=== PATIENT | male | born 1975 | race Caucasian/White ===

== ENCOUNTER 2021-07-30 15:54 | Emergency (ER) | payer BC ==
[2021-07-30 17:44] LABS: #Monocytes 0.6 10x3/uL (0.0-1.1); #Neutrophils 10.8 10x3/uL (1.5-8.4); %Basophils 0.2 % (0.0-2.0); %Eosinophils 0.2 % (0.0-6.0); %Lymphocytes 8.4 % (18.0-47.0); %Monocytes 4.7 % (0.0-10.0); %Neutrophils 86.2 % (40.0-75.0); Hemoglobin 14.1 g/dL (13.5-17.5); Mean Corpuscular HGB CONC 33.4 g/dL (32.0-36.0); Mean Corpuscular Hemoglobin 29.7 pg (27.0-33.0); Mean Corpuscular Volume 88.8 fl (81.2-95.1); Mean Platelet Volume 10.8 fl (7.4-10.4); Platelet Count 209 10x3/uL (150-450); RBC Distribution Width 12.4 % (11.5-14.5); Red Blood Cell (RBC) Count 4.75 10x6/uL (4.32-5.72); White Blood Cell (WBC) Count 12.6 10x3/uL (3.5-10.5)
[2021-07-30 17:48] LABS: INR-International Normal Ratio 0.9; PTT 23.7 sec (22.0-33.0); Prothrombin Time 10.5 sec (9.5-12.1)
[2021-07-30 17:51] LABS: ALT (SGPT) 27 U/L (8-55); AST (SGOT) 13 U/L (5-34); Albumin 4.1 g/dL (3.5-5.0); Alkaline Phosphatase 67 U/L (40-110); Anion Gap 14 mmol/L (10-20); BUN (Urea Nitrogen) 11 mg/dL (8.9-20.6); Bilirubin, Total 0.5 mg/dL (0.2-1.2); Calc. Creatinine Clearance 0 mL/min (70-130); Calcium 9.3 mg/dL (7.8-10.44); Carbon Dioxide 22 mmol/L (22-29); Chloride 105 mmol/L (98-107); Globulin 2.3 g/dL (2.4-3.5); Glucose 106 mg/dL (70-105); Potassium 4.1 mmol/L (3.5-5.1); Protein, Total 6.4 g/dL (6.0-8.3); Sodium 137 mmol/L (136-145)
[2021-07-30] MEDS ORDERED: Dexamethasone 10 MG/ML VIAL ONE (18:19)
[2021-07-30] MEDS ORDERED: levETIRAcetam in NS 100 ML ONE (18:48)
[2021-07-30 20:04] LABS: SARS-CoV-2 NAA Rapid Test DETECTED (NotDetected)
== END 2021-07-30 22:59 | disposition short-term general hospital (02) ==
LOC: CSHERS 15:54
DX: U07.1 COVID-19 (principal); G93.9 Disorder of brain, unspecified; R41.0 Disorientation, unspecified; R27.0 Ataxia, unspecified; R25.1 Tremor, unspecified
CPT/HCPCS: 36415; 71045; 80053; 85025; 85610; 85730; 86850; 86900; 86901; 93005; 96374; 96375; J1100; J1953; U0002